=== PATIENT | male | born 1980 | race Two or more races ===

== ENCOUNTER 2019-12-16 17:00 | Emergency (ER) | payer BC ==
[~2019-12-16] VITALS: Ht 175.3 cm; Wt 75.0 kg
[2019-12-16] MEDS ORDERED: CIPR-278 PO (17:12)
[2019-12-16 18:02] LABS: APPEARANCE,URINE CLEAR (CLEAR); BILIRUBIN,URINE NEGATIVE (NEGATIVE); GLUCOSE, URINE (UA) NEGATIVE (NEGATIVE); KETONES,URINE NEGATIVE (NEGATIVE); LEUKOCYTE ESTERASE ,URINE NEGATIVE (NEGATIVE); NITRATE,URINE NEGATIVE (NEGATIVE); OCCULT BLOOD,URINE NEGATIVE (NEGATIVE); PH,URINE 6.5 (5.0-8.0); PROTEIN,URINE NEGATIVE (NEGATIVE); UROBILINOGEN,URINE 0.2 mg/dL (<=1.0)
[2019-12-16] MEDS ORDERED: ACETAMINOPHEN 500 MG TABLET PO ONE (18:15)
[2019-12-16] MEDS ORDERED: CefTRIAXone SODIUM 1 GM/VIAL IM ONE (19:15)
[2019-12-16] MEDS ORDERED: AZITHROMYCIN 500 MG TABLET PO ONE (19:15)
[2019-12-16 19:30] VITALS: BP 129/78
== END 2019-12-16 20:35 | disposition home or self-care (01) ==
LOC: EMS 17:00
DX: R30.0 Dysuria (principal); R30.9 Painful micturition, unspecified
CPT/HCPCS: 81003; 87491; 87591; 96372; 99283; J0696